=== PATIENT | male | born 1995 | race Caucasian/White ===

== ENCOUNTER 2017-09-19 08:09 | Outpatient (CLI) | payer BC | END 2017-09-19 08:10 | disposition home or self-care (01) | LOC: BICRAD 08:09 | PROVIDERS: ATTEND Family Medicine | DX: M54.2 Cervicalgia (principal) | CPT/HCPCS: 72040 ==

== ENCOUNTER 2017-10-01 14:43 | Outpatient (CLI) | payer BC | END 2017-10-01 14:44 | disposition home or self-care (01) | LOC: BICMRI 14:43 | PROVIDERS: ATTEND Family Medicine | DX: M54.2 Cervicalgia (principal); Q06.4 Hydromyelia | CPT/HCPCS: 72141 ==

== ENCOUNTER 2017-11-03 10:17 | Outpatient (CLI) | payer BC ==
--- NOTE | 2017-11-03 12:50 | CT ---
CERVICAL SPINE CT NONCONTRAST: CLINICAL HISTORY: Craniocervical instability is reported per clinical assessment. COMPARISON: No prior imaging comparison. TECHNIQUE: Per ordering physician, Dr. Mariana Lennon, protocol of the exam is to include flexion and extension CT imaging as well as the standard noncontrast cervical spine CT protocol. FINDINGS: The craniocervical junction is intact. There is no evidence of craniocervical dissociation or signif icant subluxation upon flexion and extension positioning. No abnormal widening of the predental spac e. No subluxation or C2 on C3. Cervical spine vertebral body heights, and disk space heights, are p reserved. No retropulsion of bone. No acute facet malalignment. No high-grade osseous compromise o f the vertebral canal. Dense is intact. Occipital condyles and lateral masses of C1 are intact. IMPRESSION: No CT evidence of craniocervical dissociation or obvious subluxation. POS: [facility]
== END 2017-11-03 10:18 | disposition home or self-care (01) ==
LOC: TBSIIMAG 10:17
PROVIDERS: ATTEND Neurological Surgery
DX: M53.2X1 Spinal instabilities, occipito-atlanto-axial region (principal); G95.0 Syringomyelia and syringobulbia
CPT/HCPCS: 72125

== ENCOUNTER 2018-01-30 16:48 | Emergency (ER) | payer BC, OTHER | END 2018-01-30 19:02 | disposition home or self-care (01) | LOC: ERS 16:48 | DX: S39.012A Strain of muscle, fascia and tendon of lower back, initial encounter (principal); F41.9 Anxiety disorder, unspecified; F32.9 Major depressive disorder, single episode, unspecified; Z79.899 Other long term (current) drug therapy; V43.62XA Car passenger injured in collision with other type car in traffic accident, initial encounter | CPT/HCPCS: 99283 ==

== ENCOUNTER 2018-02-11 15:34 | Outpatient (CLI) | payer BC | END 2018-02-11 15:35 | disposition home or self-care (01) | LOC: BICRAD 15:34 | PROVIDERS: ATTEND Chiropractor | DX: M25.512 Pain in left shoulder (principal); M54.2 Cervicalgia; F07.81 Postconcussional syndrome ==

== ENCOUNTER 2018-02-12 10:01 | Outpatient (CLI) | payer BC ==
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
== END 2018-02-12 10:02 | disposition home or self-care (01) ==
LOC: CT 10:01
DX: F07.81 Postconcussional syndrome (principal); M54.2 Cervicalgia
CPT/HCPCS: 70450; 72125

== ENCOUNTER 2018-03-16 07:35 | Outpatient (CLI) | payer BC | END 2018-03-16 07:36 | disposition home or self-care (01) | LOC: BICMRI 07:35 | PROVIDERS: ATTEND Neurological Surgery | DX: G95.0 Syringomyelia and syringobulbia (principal); M53.2X1 Spinal instabilities, occipito-atlanto-axial region | CPT/HCPCS: 72050; 72141 ==